=== PATIENT | male | born 1975 | race Caucasian/White ===

== ENCOUNTER 2024-12-23 12:33 | Inpatient (IN) ==
--- NOTE | 2024-12-23 12:43 | Emergency Department Note ---
Impression & Plan Dog bite of right hand, Nausea vomiting and diarrhea ED Provider Note CHIEF COMPLAINT: Dog bite HISTORY OF PRESENTING ILLNESS: Patient is a 49-year-old male who arrives to the emergency department for evaluation of concern for infection from dog bite occurred over the weekend. Patient received, IV Unasyn, and was discharged home on Augmentin. Patient states infection appears to be developing, and he is feeling not well. The patient states he has been unable to keep down his oral antibiotics from nausea and vomiting. He reports fevers, body aches, and abdominal pain. He reports he has also had some persistent diarrhea. He states the pain in his hand, has not worsened however the swelling has slightly increased as well as the redness. He is neurovascularly intact. REVIEW OF SYSTEMS: See HPI for pertinent positives and pertinent negatives. ALLERGIES: No known drug allergy MEDICATIONS: Augmentin PAST MEDICAL HISTORY: No pertinent past medical history PHYSICAL EXAM: VITALS: Vitals are noted on the nurse's note and reviewed by myself. Vital signs stable. GENERAL: 49-year-old male, in no acute distress, nondiaphoretic, well-developed well-nourished. SKIN: Erythema with edema and puncture wounds noted to the right hand. Cellulitis noted extending across the wrist joint onto the distal forearm. HEART: Regular rate and rhythm without murmurs gallops or rubs. LUNGS: Clear to auscultation bilaterally without wheezes, rales or rhonchi. No retractions or accessory muscle use. MUSCULOSKELETAL: Full ROM right wrist, director of women's services strength 4/5. Capillary refill <3. NEURO: Patient was alert and oriented to person place and time. No focal neurological deficits. DIFFERENTIAL DIAGNOSIS: Cellulitis, abscess, MRSA infection, DVT, necrotizing fasciitis, dermatitis, drug eruption, allergic reaction, as well as other pathologies. ED COURSE AND MEDICAL DECISION MAKING: HISTORY FROM INDEPENDENT HISTORIAN: Significant other at bedside as secondary historian. MEDICATIONS GIVEN: 1LNSS bolus, 3gm IV Unasyn MDM SUMMARY: The patient is a pleasant 49-year-old male who presents to the emergency department for the above stated complaint. A saline lock was established, CBC, CMP, lactate, procalcitonin, magnesium, phosphorus, upper respiratory BioFire panel, stool BioFire panel were obtained. CBC shows no leukocytosis, with a stable hemoglobin and hematocrit. CMP shows phosphorus just slightly low at 2.4, with no other concerning findings. Magnesium within normal limits, lactate 0.9 procalcitonin 1.51. Upper respiratory viral panel negative. Stool culture not obtained while patient was in the department. The patient was provided 1 L normal saline, as well as 3 g IV Unasyn. Due to the patient not being able to keep down food or fluids, IV admission is indicated as the patient did sustain a significant dog bite, with worsening infection and worsening cellulitis. Contact was made with case management to [facility] I spoke with Dr. Mason[facility], who agreed to accept the patient for admission. The patient will require IV fluids, and IV antibiotics. Please refer to their documentation for further patient workup and care. DIAGNOSIS: Dog bite infection The chart was completed utilizing [employer] Speech voice recognition software. Grammatical errors, random word insertions, pronoun errors, and incomplete sentences are an occasional consequence of this system due to software limitations, ambient noise, and hardware issues. Any formal questions or concerns about the content, text, or information contained within the body of this dictation should be directly addressed to the provider for clarification. Past Med/Surg History Problem List (Updated 12/23/24 @ 17:04 by YASMEEN Silva) Nausea vomiting and diarrhea (Acute) Dog bite of right hand (Acute) Social History Smoking Status: Never smoker Preferred Language: Nepali Feels Safe at Home: Yes Allergies Allergies Allergy/AdvReac Type Severity Reaction Status Date / Time No Known Allergies Allergy Verified 12/22/24 01:25 Home Meds Previous Rx's Medication Instructions Recorded amoxicillin 875 mg-potassium 1 tab PO BID 10 days #20 tabs 12/22/24 clavulanate 125 mg tablet Results & Data (ED) Vital Signs Vital Signs - 24 hr 12/23/24 12:41 12/23/24 15:00 12/23/24 16:23 Temperature 36.7 C Temperature Source Temporal Artery Scan Pulse Rate 125 H Pulse Rate [Right Finger] 113 H 108 H Pulse Rhythm Regular Pulse Rhythm [Right Finger] Regular Pulse Strength Normal Pulse Strength [Right Finger] Normal Respiratory Rate 20 16 18 Respiratory Effort / Characteristics Non-Labored Spontaneous Non-Labored Spontaneous Non-Labored Spontaneous Respiratory Depth Normal Normal Normal Respiratory Pattern Regular Regular Blood Pressure 128/77 Blood Pressure [Right Arm] 126/80 131/91 Blood Pressure Mean 94 Blood Pressure Mean [Right Arm] 95 104 Blood Pressure Position [Right Arm] Semi-fowlers Pulse Oximetry 95 93 95 Oxygen Delivery Method Room Air Room Air Room Air Sepsis Recent Fever Within 48 Hours No Sepsis New/Unexplained Change in Mental Status N/A Sepsis Action Taken by Nursing No Action Required Home Medications Current Medication List: was personally reviewed by me Laboratory Data Attestation: I reviewed the patient's lab results. 12/23/24 13:36 12/23/24 13:45 Lab Results 12/23/24 12/23/24 12/23/24 Range/Units 13:36 13:45 14:30 WBC 5.24 (4.8-10.8) K/ul RBC 5.18 (4.70-6.10) M/uL Hgb 15.5 (14.0-18.0) g/dl Hct 44.9 (42.0-52.0) % MCV 86.7 (80.0-100.0) fL MCH 29.9 (25.0-34.0) pg MCHC 34.5 (32.0-36.0) g/dL RDW Std Deviation 39.9 (36.4-46.3) fL RDW Coeff of Luz Elena 12.7 (11.5-14.5) % Plt Count 172 (130-400) K/uL MPV 11.0 (9.4-12.4) fL Immature Gran % (Auto) 0.2 % Neut % (Auto) 91.2 % Lymph % (Auto) 3.6 % Gregory % (Auto) 4.8 % Eos % (Auto) 0.0 % Baso % (Auto) 0.2 % Neut # (Auto) 4.78 (1.40-6.50) K/uL Lymph # (Auto) 0.19 L (1.20-3.40) K/uL Gregory # (Auto) 0.25 (0.11-0.59) K/uL Eos # (Auto) 0.00 (0.00-0.50) K/uL Baso # (Auto) 0.01 (0.00-0.20) K/uL Immature Gran # (Auto) 0.01 (0.01-0.20) K/uL RBC Morphology Unremarkable Sodium 137 (136-145) mmol/L Potassium 3.5 (3.5-5.1) mmol/L Chloride 105 (98-107) mmol/L Carbon Dioxide 28 (21-32) mmol/L Anion Gap 4 (3-11) BUN 21 (6-23) mg/dl Creatinine 1.00 (0.6-1.4) mg/dl Est Cr Clr Drug Dosing 92.3 ml/min eGFR 92.26 BUN/Creatinine Ratio 21.0 H (10-20) Glucose 158 H (70-99(Fasting)) mg/dl Lactate 0.9 (0.4-2.0) mmol/L Calcium 8.7 (8.6-10.3) mg/dl Phosphorus 2.4 L (2.5-4.9) mg/dl Magnesium 1.7 (1.7-2.4) mg/dl Total Bilirubin 0.8 (0.2-1.0) mg/dl AST 23 (13-39) U/L ALT 22 (7-52) U/L Alkaline Phosphatase 38 (34-104) U/L Total Protein 6.2 (6.0-8.3) gm/dl Albumin 4.1 (3.4-5.0) gm/dl Globulin 2.1 L (2.5-4.0) gm/dl Albumin/Globulin Ratio 2.0 (0.9-2) Procalcitonin 1.51 H (0-0.5) ng/ml Adenovirus (PCR) Not Detected (NotDetected) B. pertussis DNA (PCR) Not Detected (NotDetected) B.parapertussis DNA PCR Not Detected (NotDetected) C. pneumoniae DNA (PCR) Not Detected (NotDetected) Coronavirus OC43 (PCR) Not Detected (NotDetected) Coronavirus HKU1 (PCR) Not Detected (NotDetected) Coronavirus 229E (PCR) Not Detected (NotDetected) SARS-CoV-2 (PCR) Not Detected (NotDetected) Coronavirus NL63 (PCR) Not Detected (NotDetected) Human Metapneumovir PCR Not Detected (NotDetected) Influenza Type A (PCR) Not Detected (NotDetected) Influenza Type B (PCR) Not Detected (NotDetected) M. pneumoniae (PCR) Not Detected (NotDetected) Parainfluenza 1 (PCR) Not Detected (NotDetected) Parainfluenza 2 (PCR) Not Detected (NotDetected) Parainfluenza 3 (PCR) Not Detected (NotDetected) Parainfluenza 4 (PCR) Not Detected (NotDetected) RSV (PCR) Not Detected (NotDetected) Entero/Rhino (PCR) Not Detected (NotDetected) Administered Medications Discontinued Medications Sodium Chloride (Nss) 1,000 mls @ 999 mls/hr IV .Q1H1M ONE Stop: 12/23/24 14:36 Last Infusion: 12/23/24 15:12 Dose: Infused Documented By: Admin: 12/23/24 13:50 Dose: 999 mls/hr Documented By: BERNARD Ampicillin Sodium/Sulbactam Sodium (Unasyn) 3,000 mg in 100 mls @ 200 mls/hr IV NOW STA Stop: 12/23/24 15:20 Last Infusion: 12/23/24 15:56 Dose: Infused Documented By: Admin: 12/23/24 15:08 Dose: 200 mls/hr Documented By: BERNARD Discharge Plan Visit Data Chief Complaint: Animal Bite Stated Complaint: DOG BITE, SICK ED Provider: Narendra Garcia ED Midlevel Provider: Radha Higginbotham Discharge Problem: Dog bite of right hand, Nausea vomiting and diarrhea Forms Stand Alone Forms: [facility] Prescriptions Prescriptions: No Action amoxicillin-pot clavulanate 875-125 mg tablet 1 tab PO BID 10 Days Qty: 20 0RF Referrals Referrals: PCP,NO [Primary Care Provider] -
[2024-12-23] MEDS: SODIUM CHLORIDE 0.9% 1,000 ML IV ONE (13:50)
[2024-12-23 14:16] LABS: Hematocrit (blood only) 44.9 % (42.0-52.0); Hemoglobin 15.5 g/dl (14.0-18.0); Mean Corpuscular Hemoglobin 29.9 pg (25.0-34.0); Mean Corpuscular Hgb Conc 34.5 g/dL (32.0-36.0); Mean Corpuscular Volume 86.7 fL (80.0-100.0); Platelet Count 172 K/uL (130-400); RDW Coefficient of Variation 12.7 % (11.5-14.5); RDW Standard Deviation 39.9 fL (36.4-46.3); Red Blood Count 5.18 M/uL (4.70-6.10); White Blood Count 5.24 K/ul (4.8-10.8)
[2024-12-23 14:31] LABS: Albumin Level 4.1 gm/dl (3.4-5.0); Bilirubin,Total 0.8 mg/dl (0.2-1.0); Calcium 8.7 mg/dl (8.6-10.3); Creatinine Clr Calc Pharmacy 92.3 ml/min; Globulin 2.1 gm/dl (2.5-4.0); Magnesium 1.7 mg/dl (1.7-2.4); Phosphorus 2.4 mg/dl (2.5-4.9); Potassium 3.5 mmol/L (3.5-5.1); Total Protein 6.2 gm/dl (6.0-8.3)
[2024-12-23 14:36] LABS: Basophils # (auto) 0.01 K/uL (0.00-0.20); Basophils % (auto) 0.2 %; Immature Granulocytes # (auto) 0.01 K/uL (0.01-0.20); Immature Granulocytes % (auto) 0.2 %; Lymphocytes # (auto) 0.19 K/uL (1.20-3.40); Lymphocytes % (auto) 3.6 %; Monocytes # (auto) 0.25 K/uL (0.11-0.59); Monocytes % (auto) 4.8 %; Neutrophils # (auto) 4.78 K/uL (1.40-6.50); Neutrophils % (auto) 91.2 %; RBC Morphology Unremarkable
[2024-12-23 14:57] LABS: Adenovirus PCR Not Detected (NotDetected); Bordetella parapertussis PCR Not Detected (NotDetected); Bordetella pertussis PCR Not Detected (NotDetected); Chlamydia pneumoniae PCR Not Detected (NotDetected); Coronavirus 229E PCR Not Detected (NotDetected); Coronavirus CoV-2 (COVID19)PCR Not Detected (NotDetected); Coronavirus HKU1 PCR Not Detected (NotDetected); Coronavirus NL63 PCR Not Detected (NotDetected); Coronavirus OC43PCR Not Detected (NotDetected); Human Metapneumovirus PCR Not Detected (NotDetected); Influenza A PCR Not Detected (NotDetected); Influenza B PCR Not Detected (NotDetected); Mycoplasma pneumoniae PCR Not Detected (NotDetected); Parainfluenza Virus 1 PCR Not Detected (NotDetected); Parainfluenza Virus 2 PCR Not Detected (NotDetected); Parainfluenza Virus 3 PCR Not Detected (NotDetected); Parainfluenza Virus 4 PCR Not Detected (NotDetected); Respiratory Syncytial VirusPCR Not Detected (NotDetected); Rhinovirus/Enterovirus PCR Not Detected (NotDetected)
[2024-12-23] MEDS: AMPICILLIN/SULBACTAM SOD 3,000 MG/100 ML BAG IV STA (15:08)
--- NOTE | 2024-12-23 16:46 | History & Physical Report ---
Date of Service December 23, 2024 History of Present Illness Chief Complaint: Fevers, Recent Dog Bite Primary Care Provider: NO PCP Edenilson Eileeneliceo is a 49y/o M with PMHx significant for who presented to the ED for evaluation of Allergies Allergy/AdvReac Type Severity Reaction Status Date / Time No Known Allergies Allergy Verified 12/22/24 01:25 Home Medications Medication Instructions Recorded Confirmed Type amoxicillin 875 mg-potassium 1 tab PO BID 10 days #20 tabs 12/22/24 12/23/24 Rx clavulanate 125 mg tablet Past Med/Surg History Problem List Dog bite of right hand (Acute) Social History Smoking Status: Never smoker Preferred Language: Italian Feels Safe at Home: Yes Results & Data Results & Data Vital Signs (Past 12 Hours) Vital Signs Temp Pulse Pulse Resp BP BP Pulse Ox 12/23/24 16:23 108 H 18 131/91 95 12/23/24 15:00 113 H 16 126/80 93 12/23/24 12:41 36.7 C 125 H 20 128/77 95 O2 Del Method 12/23/24 16:23 Room Air 12/23/24 15:00 Room Air 12/23/24 12:41 Room Air
--- NOTE | 2024-12-23 17:57 | History & Physical Report ---
Date of Service December 23, 2024 Assessment & Plan (1) Dog bite of right hand: (2) Cellulitis of right hand: (3) Hyperglycemia, unspecified: (4) Hypophosphatemia: Plan Patient 49-year-old gentleman suffered a dog bite to his right hand, failed outpatient therapy due to intolerability of oral medications. Presents with evidence of worsening cellulitis. Patient high risk for further worsening, sepsis, abscess formation. Patient requires hospital level care for IV antibiotics and monitoring, possible specialty consultation. Admit to the MedSurg unit Continue IV Unasyn CT of the hand to evaluate for developing abscess. If there is any evidence of abscess, orthopedic/hand surgeon consultation for possible debridement Replace phosphorus Check fasting glucose in a.m. along with A1c History of Present Illness Chief Complaint: Dog bite with increasing redness and pain Primary Care Provider: NO PCP Patient 49-year-old gentleman who initially presented to the emergency department yesterday after being bit on the right hand by a dog. Patient had reported that he was playing with the dog and the dog accidentally bit his hand. It was a large husky mixed breed dog. All shots were up-to-date. Patient had x-rays of the hand done yesterday. There is no evidence of fracture or foreign body. The hand was copiously irrigated in the ED and Steri-Strips were placed. He was given a dose of Unasyn here in the ED and a prescription for Augmentin to be taken at home. He attempted to take the Augmentin at home. But he had not significant abdominal discomfort diarrhea and noticed that the hand was becoming more swollen and red and return to the ED. Laboratory evaluation here in the ED was remarkable for an elevated procalcitonin but normal WBCs. However due to the fact that the patient cannot tolerate his antibiotics and there appeared to be worsening of his swelling in his hand and redness was referred for hospital level care. Time my evaluation patient reported that the swelling had improved but noticed some red streaking up his arm. He denies any fever but did have some chills. No other joint pains or swelling. No chest pain or shortness of breath. No problems with his bladder. Is having some loose stools. Allergies Allergy/AdvReac Type Severity Reaction Status Date / Time No Known Allergies Allergy Verified 12/22/24 01:25 Home Medications Medication Instructions Recorded Confirmed Type amoxicillin 875 mg-potassium 1 tab PO BID 10 days #20 tabs 12/22/24 12/23/24 Rx clavulanate 125 mg tablet Past Med/Surg History Problem List (Updated 12/23/24 @ 17:54 by Will Mason DO) Hypophosphatemia Hyperglycemia, unspecified Cellulitis of right hand Nausea vomiting and diarrhea (Acute) Dog bite of right hand (Acute) Social History Smoking Status: Never smoker Preferred Language: Bengali Feels Safe at Home: Yes Review of Systems Review of Systems: Pertinent positive and negative review of systems as mentioned in the HPI Physical Exam Physical Exam: Constitutional: Alert, mildly ill in appearance, nontoxic HEENT: Mucous membranes moist. Sclera clear Neck: Soft, no adenopathy Lungs: Clear to auscultation, decreased, no wheezes rales or rhonchi CV: S1-S2, regular Abdomen: Soft, nontender, nondistended Extremities: No significant edema Musculoskeletal: Right hand with multiple puncture wounds on the thenar eminence, thumb and dorsal surface of the hand. Thenar eminence is quite swollen, red, warm, tender. There is some venous streaking up the lateral forearm Neuro: No focal deficits Psych: Cooperative, normal mood Results & Data Results & Data Vital Signs (Past 12 Hours) Vital Signs Temp Pulse Pulse Resp BP BP Pulse Ox 12/23/24 16:23 108 H 18 131/91 95 12/23/24 15:00 113 H 16 126/80 93 12/23/24 12:41 36.7 C 125 H 20 128/77 95 O2 Del Method 12/23/24 16:23 Room Air 12/23/24 15:00 Room Air 12/23/24 12:41 Room Air Diagnostic Findings Reviewed imaging, laboratory and diagnostic studies. Pertinent findings as below. CBC within normal range Potassium 3.5 Creatinine 1.0 Glucose 158 Lactate 0.9 Phosphorus 2.4 Procalcitonin 1.5 Respiratory viral panel negative Blood cultures pending Code Status & VTE Plan VTE Prophylaxis Plan VTE Prophylaxis will be ordered: Yes
--- NOTE | 2024-12-23 18:46 | CT Scan Report ---
CT extremity without contrast History: Swelling Comparison: None Technique: CT performed of the extremity without IV contrast. Dose reduction techniques were achieved by using automatic exposure control and/or adjustment of mA and/or kV according to patient size and/or use of iterative reconstruction technique. Findings: No fracture or dislocation. Joint spaces are normally aligned. There is generalized soft tissue swelling about the radial aspect of the hand and the base of the thumb. No focal collection, abscess or hematoma. No aggressive osseous lesion. Impression: Soft tissue swelling without bony abnormality or abscess, as questioned. Electronically signed by González Hilliard 12-23-2024 6:46 PM
[2024-12-23] MEDS ORDERED: ALUMINUM/MAGNESIUM SUSP 30 ML UDC PO PRN (20:37)
[2024-12-23] MEDS ORDERED: oxyCODONE HCL IR 5 MG TAB (IMMEDIATE RELEASE) PO PRN (20:37)
[2024-12-23] MEDS ORDERED: ONDANSETRON INJ 2 MG/ML 2 ML VIAL IV PRN (20:37)
[2024-12-23] MEDS: ACETAMINOPHEN 325 MG TAB PO PRN (21:03)
[2024-12-23] MEDS: AMPICILLIN/SULBACTAM SOD 3,000 MG/100 ML BAG IV SCH (21:18)
[2024-12-23] MEDS: POT PHOSPHATE MONOBASIC W/ SOD TAB PO SCH (21:21)
[2024-12-23] MEDS: LACTATED RINGER'S 1,000 ML IV SCH (22:16)
[2024-12-23] MEDS: IBUPROFEN 600 MG TAB PO PRN (22:16)
[2024-12-23 22:48] LABS: Adenovirus F 40/41 PCR Not Detected (NotDetected); Astrovirus PCR Not Detected (NotDetected); Campylobacter PCR Not Detected (NotDetected); Cryptosporidium PCR Not Detected (NotDetected); Cyclospora cayetanensis PCR Not Detected (NotDetected); Entamoeba histolytica PCR Not Detected (NotDetected); Enteroaggregative E.coli(EAEC) Not Detected (NotDetected); Enteropathogenic E.coli (EPEC) Not Detected (NotDetected); Enterotoxigenic E.coli (ETEC) Not Detected (NotDetected); Giardia lamblia PCR Not Detected (NotDetected); Plesiomonas shigelloides PCR Not Detected (NotDetected); Rotavirus A PCR Not Detected (NotDetected); Salmonella PCR Not Detected (NotDetected); Sapovirus PCR Not Detected (NotDetected); Shiga-like Toxin E.coli (STEC) Not Detected (NotDetected); Shigella/Enteroinvasive E.coli Not Detected (NotDetected); Vibrio cholerae PCR Not Detected (NotDetected); Vibrio species PCR Not Detected (NotDetected); Yersinia enterocolitica PCR Not Detected (NotDetected)
[2024-12-23 22:51] LABS: Norovirus GI/GII PCR DETECTED (NotDetected)
[2024-12-24 07:32] LABS: Hematocrit (blood only) 40.7 % (42.0-52.0); Hemoglobin 13.9 g/dl (14.0-18.0); Mean Corpuscular Hemoglobin 30.1 pg (25.0-34.0); Mean Corpuscular Hgb Conc 34.2 g/dL (32.0-36.0); Mean Corpuscular Volume 88.1 fL (80.0-100.0); Mean Platelet Volume 10.8 fL (9.4-12.4); Platelet Count 136 K/uL (130-400); RDW Coefficient of Variation 12.8 % (11.5-14.5); RDW Standard Deviation 41.1 fL (36.4-46.3); Red Blood Count 4.62 M/uL (4.70-6.10); White Blood Count 2.82 K/ul (4.8-10.8)
--- NOTE | 2024-12-24 07:35 | Hospitalist Progress Note ---
Date of Service December 24, 2024 Assessment & Plan (1) Dog bite of right hand: (2) Cellulitis of right hand: (3) Hyperglycemia, unspecified: (4) Hypophosphatemia: Plan Patient 49-year-old gentleman suffered a dog bite to his right hand, failed outpatient therapy due to intolerability of oral medications. Presents with evidence of worsening cellulitis. Patient high risk for further worsening, sepsis, abscess formation. Patient requires hospital level care for IV antibiotics and monitoring, possible specialty consultation. #R hand dog bite Admit to the MedSurg unit Continue IV Unasyn CT of the hand negative for abscess DOG is fully vaccinated for rabies add probiotic, significant improvement to erythema Likely can be discharged tomorrow on Augmentin, pt states he did not yet start the Augmentin he was previously prescribed due to N/V #Norovirus suspect pt pre hospital n/v/d 2/2 above vomiting has resolved, he is tolerating intake he is still having diarrhea imodium prn added #Hypokalemia #Hypophosphatemia K 3.3 today, will replace Phos replaced on admission #DVT ppx: encourage ambulation FULL CODE Dispo: continue IV antibiotics for 1 more day, likely d/c in a.m. Pt was seen and examined in collaboration with Dr. Estrada, please see addendum I spent a total of 46 minutes coordinating, documenting and providing care for this patient excluding time spent in the performance of separately billed services or time spent by another provider/QHP. Admission and Anticipated Discharge Date Admission Date: December 23, 2024 Supervising Physician Co-Signing Physician Notes Patient seen and examined independently. He reports that he feels much better and the swelling in the hands has significantly improved Reports diarrhea has slightly improved as well. Continue IV antibiotics Possible discharge later today or in a.m. I have reviewed the advanced practitioner's documentation, and I agree with, and take responsibility for the plan of care I spent a total of 20 minutes coordinating, documenting, and providing care for this patient excluding time spent in the performance of separately billed services. All of the aforementioned completed while collaborating with the assigned advanced practitioner for a full treatment plan Subjective Pt seen in 357-1. He feels his hand is less swollen/red today. He confirms the husky that bit him was vaccinated for rabies. He denies further vomiting but he does have several episodes of diarrhea. Denies f/c/s, chest pain, sob, n/v. Review of Systems Review of Systems: All systems reviewed & are unremarkable except as noted in HPI & below Physical Exam Physical Exam: Gen: WD/WN, NAD, A&O x3 HEENT: Normocephalic, atraumatic, conjunctivae moist, sclerae anicteric, mucous membranes moist. Lung: Clear to Auscultation bilaterally, no wheezes/rales/rhonchi Heart: Regular rate, regular rhythm, no murmurs, rubs, or gallops Abdomen: Soft, NT, ND +BS x 4 Extremities: + dog bite/puncture wounds to R thenar aspect of hand, steris in place, venous streaking has since resolved Skin: Warm, no rash, negative turgor. Results & Data Results & Data Vital Signs (Past 12 Hours) Vital Signs Temp Pulse Resp BP Pulse Ox O2 Del Method 12/23/24 21:28 37.8 C H 94 H 18 136/67 93 Room Air 12/23/24 20:59 37.8 C H 94 H 18 136/67 93 Room Air Laboratory Results I have independently reviewed and interpreted patient's cbc, bmp, a1c Short CBC 12/23/24 12/24/24 Range/Units 13:36 07:07 WBC 5.24 2.82 L (4.8-10.8) K/ul Hgb 15.5 13.9 L (14.0-18.0) g/dl Hct 44.9 40.7 L (42.0-52.0) % Plt Count 172 136 (130-400) K/uL BMP 12/23/24 12/24/24 13:45 07:07 Sodium 137 141 Potassium 3.5 3.3 L Chloride 105 108 H Carbon Dioxide 28 32 BUN 21 10 Creatinine 1.00 0.89 Glucose 158 H 111 H Calcium 8.7 7.8 L Liver Function 12/23/24 Range/Units 13:45 Total Bilirubin 0.8 (0.2-1.0) mg/dl AST 23 (13-39) U/L ALT 22 (7-52) U/L Alkaline Phosphatase 38 (34-104) U/L Albumin 4.1 (3.4-5.0) gm/dl Medications Administered Current Inpatient Medications Acetaminophen (Acetaminophen 325 Mg Tab) 650 mg PO Q4H PRN PRN Reason: pain/fever Stop: 01/22/25 20:36 Last Admin: 12/23/24 21:03 Dose: 650 mg Al Hydrox/Mg Hydrox/Simethicone (Aluminum/Magnesium Susp 30 Ml Udc) 30 ml PO Q6H PRN PRN Reason: Dyspepsia Stop: 01/22/25 20:36 Ampicillin Sodium/Sulbactam Sodium (Unasyn) 3,000 mg in 100 mls @ 200 mls/hr IV Q6H KALYAN Stop: 12/30/24 20:59 Last Infusion: 12/24/24 09:05 Dose: Infused Ibuprofen (Ibuprofen 600 Mg Tab) 600 mg PO Q6H PRN PRN Reason: Pain or Fever Stop: 01/22/25 20:36 Last Admin: 12/23/24 22:16 Dose: 600 mg Lactobacillus Acidophilus (Advanced Probiotic 625 Mg Capsule) 1,250 mg PO DAILY KALYAN Stop: 01/23/25 11:09 Loperamide HCl (Loperamide Hcl 2 Mg Cap) 2 mg PO Q4H PRN PRN Reason: frequent diarrhea Stop: 01/23/25 11:09 Ondansetron HCl (Ondansetron Inj 2 Mg/Ml 2 Ml Vial) 4 mg IV Q6H PRN PRN Reason: Nausea Stop: 01/22/25 20:36 Oxycodone HCl (Oxycodone Hcl Ir 5 Mg Tab (Immediate Release)) 5 mg PO Q4H PRN PRN Reason: Pain Stop: 01/06/25 20:36
[2024-12-24 07:39] LABS: BUN Creatinine Ratio 11.2 (10-20); Calcium 7.8 mg/dl (8.6-10.3); Creatinine Clr Calc Pharmacy 103.7 ml/min; Phosphorus 2.6 mg/dl (2.5-4.9); Potassium 3.3 mmol/L (3.5-5.1)
[2024-12-24] MEDS: POTASSIUM CHLORIDE CRTAB 20 MEQ TABCR PO STA (08:27)
[2024-12-24 09:10] LABS: Estimated Average Glucose 111 mg/dl; Hemoglobin A1C 5.5 % (4.5-5.6)
[2024-12-24] MEDS ORDERED: LOPERAMIDE HCL 2 MG CAP PO PRN (11:10)
[2024-12-24] MEDS: ADVANCED PROBIOTIC 625 MG CAPSULE PO SCH (12:37)
[2024-12-24 16:02] VITALS: RESP 18
[2024-12-25 07:24] VITALS: BP 118/69; PULSE 75; TEMP 97.9; O2SAT 96
[2024-12-25 07:24] LABS: Basophils # (auto) 0.01 K/uL (0.00-0.20); Basophils % (auto) 0.4 %; Eosinophils # (auto) 0.04 K/uL (0.00-0.50); Eosinophils % (auto) 1.6 %; Hematocrit (blood only) 41.7 % (42.0-52.0); Hemoglobin 13.9 g/dl (14.0-18.0); Immature Granulocytes # (auto) 0.01 K/uL (0.01-0.20); Immature Granulocytes % (auto) 0.4 %; Lymphocytes # (auto) 1.02 K/uL (1.20-3.40); Lymphocytes % (auto) 40.2 %; Mean Corpuscular Hemoglobin 29.9 pg (25.0-34.0); Mean Corpuscular Hgb Conc 33.3 g/dL (32.0-36.0); Mean Corpuscular Volume 89.7 fL (80.0-100.0); Mean Platelet Volume 11.1 fL (9.4-12.4); Monocytes % (auto) 15.7 %; Neutrophils # (auto) 1.06 K/uL (1.40-6.50); Neutrophils % (auto) 41.7 %; Platelet Count 164 K/uL (130-400); RDW Coefficient of Variation 12.4 % (11.5-14.5); RDW Standard Deviation 40.7 fL (36.4-46.3); Red Blood Count 4.65 M/uL (4.70-6.10); White Blood Count 2.54 K/ul (4.8-10.8)
[2024-12-25 08:05] LABS: BUN Creatinine Ratio 9.3 (10-20); Calcium 8.8 mg/dl (8.6-10.3); Creatinine Clr Calc Pharmacy 107.3 ml/min; Potassium 4.1 mmol/L (3.5-5.1)
--- NOTE | 2024-12-25 10:45 | Discharge Summary ---
Discharge Summary Date of Service December 25, 2024 Principal Dx & Hospital Course #1 = Principal Diagnosis (1) Dog bite of right hand: (2) Cellulitis of right hand: (3) Hyperglycemia, unspecified: (4) Hypophosphatemia: Plan Patient 49-year-old gentleman suffered a dog bite to his right hand, failed outpatient therapy due to intolerability of oral medications. Presents with evidence of worsening cellulitis. Patient high risk for further worsening, sepsis, abscess formation. Patient requires hospital level care for IV antibiotics and monitoring, possible specialty consultation. 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 Ayala, please see addendum I spent a total of 40 minutes coordinating, documenting and providing care for this patient excluding time spent in the performance of separately billed services or time spent by another provider/QHP. Notes For Next Care Provider Medication Changes From Visit Please complete the course of Augmentin that was initially prescribed to you to complete treatment for cellulitis and dog bite. The next dose of your antibiotic is this evening. It is recommended that you take a daily probiotic while on antibiotic therapy. Admission HPI Per Admitting Provider Patient 49-year-old gentleman who initially presented to the emergency departmen t yesterday after being bit on the right hand by a dog. Patient had reported that he was playing with the dog and the dog accidentally bit his hand. It was a large husky mixed breed dog. All shots were up-to-date. Patient had x-rays of the hand done yesterday. There is no evidence of fracture or foreign body. The hand was copiously irrigated in the ED and Steri-Strips were placed. He was given a dose of Unasyn here in the ED and a prescription for Augmentin to be taken at home. He attempted to take the Augmentin at home. But he had not significant abdominal discomfort diarrhea and noticed that the hand was becoming more swollen and red and return to the ED. Laboratory evaluation here in the ED was remarkable for an elevated procalcitonin but normal WBCs. However due to the fact that the patient cannot tolerate his antibiotics and there appeared to be worsening of his swelling in his hand and redness was referred for hospital level care. Time my evaluation patient reported that the swelling had improved but noticed some red streaking up his arm. He denies any fever but did have some chills. No other joint pains or swelling. No chest pain or shortness of breath. No problems with his bladder. Is having some loose stools. Admission Exam Per Admitting Provider Constitutional: Alert, mildly ill in appearance, nontoxic HEENT: Mucous membranes moist. Sclera clear Neck: Soft, no adenopathy Lungs: Clear to auscultation, decreased, no wheezes rales or rhonchi CV: S1-S2, regular Abdomen: Soft, nontender, nondistended Extremities: No significant edema Musculoskeletal: Right hand with multiple puncture wounds on the thenar eminence, thumb and dorsal surface of the hand. Thenar eminence is quite swollen, red, warm, tender. There is some venous streaking up the lateral forearm Neuro: No focal deficits Psych: Cooperative, normal mood Discharge Exam Gen: WD/WN, NAD, A&O x3 HEENT: Normocephalic, atraumatic, conjunctivae moist, sclerae anicteric, mucous membranes moist. Lung: Clear to Auscultation bilaterally, no wheezes/rales/rhonchi Heart: Regular rate, regular rhythm, no murmurs, rubs, or gallops Abdomen: Soft, NT, ND +BS x 4 Extremities: + dog bite/puncture wounds to R thenar aspect of hand, steris in place, no redness Skin: Warm, no rash, negative turgor. Updated Medication List Medication Instructions Recorded Confirmed Type amoxicillin 875 mg-potassium 1 tab PO BID 10 days #20 tabs 12/22/24 12/23/24 Rx clavulanate 125 mg tablet Hospital Stay Data Consultations 12/23/24 16:50 ED Decision to Admit Stat Diagnostic Imagining Performed Hand CT 12/23/24 17:39 CT extremity without contrast History: Swelling Comparison: None Technique: CT performed of the extremity without IV contrast. Dose reduction techniques were achieved by using automatic exposure control and/or adjustment of mA and/or kV according to patient size and/or use of iterative reconstruction technique. Findings: No fracture or dislocation. Joint spaces are normally aligned. There is generalized soft tissue swelling about the radial aspect of the hand and the base of the thumb. No focal collection, abscess or hematoma. No aggressive osseous lesion. Impression: Soft tissue swelling without bony abnormality or abscess, as questioned. Electronically signed by González Hilliard 12-23-2024 6:46 PM Pending Results Patient Have Any Pending Studies at Discharge: No Discharge Instructions Given to Patient (Per Discharging Provider) MEDICATION CHANGES: Please complete the course of Augmentin that was initially prescribed to you to complete treatment for cellulitis and dog bite. The next dose of your antibiotic is this evening. It is recommended that you take a daily probiotic while on antibiotic therapy. SUMMARY OF TEST RESULTS: Edenilson you were admitted to the hospital after you sustained a dog bite to your Right hand. Unfortunately you were prescribed antibiotics, but you were unable to take them as you also came down with norovirus. Norovirus is a highly contagious GI illness that causes nausea vomiting and diarrhea and typically resolves after 72 hrs on its own. While hospitalized you received IV antibiotics and you are now tolerating a regular diet. You will be discharged home to complete the antibiotic that was already prescribed to you. You informed us that you are up to date on your tetanus vaccine. You also informed us that the dog that bit you was vaccinated for rabies. Please have the dog rectifier operator monitor the dog for 10 days to ensure no change in behavior. PENDING TEST RESULTS: None RECOMMENDATIONS FOR FOLLOW-UP: [place] follow up with your Primary Care Provider in 7 days to have your dog bite re evaluated. If you noticed the wound becomes more red, swollen or you develop fever please return to ED immediately. Please take antibiotics in its entirety. OTHER INSTRUCTIONS: Seek medical attention if you have: * temperature above 101 * chest pain or trouble breathing * abdominal pain, nausea, vomiting * diarrhea, dark stools or bloody stools * any unanswered questions or concerns Call 911 if symptoms are severe. Please take good care of yourself. It has been a pleasure taking care of you. Please take care of yourself. If you have any questions regarding your recent hospitalization please contact [facility] and request Farzad Cordero @ [phone]. Total Time Total Time Spent Total Time Spent (In Minutes): 40 minutes Supervising Physician Co-Signing Physician Notes Patient is seen and examined at bedside on day of discharge. Right hand swelling, pain, erythema much improved. Nausea, vomiting, diarrhea resolved. he offers no new complaints. Physical Exam: Vitals signs as noted above General Appearance:Moderately built and nourished, no apparent distress Head: normocephalic, Atraumatic Eyes: normal inspection, EOMI Neck: supple, Trachea midline Respiratory/Chest: Normal breath sounds, CTA, No accessory muscle use Cardiovascular: S1, S2, No murmur Abdomen/GI:Soft, Non tender, Bowel sounds present Extremities/Musculoskeletal:normal inspection, no edema, R hand puncture wounds noted, no erythema Neurologic/Psych:AAOX3, grossly no focal neurological deficits Skin: normal color, warm Right hand cellulitis Secondary to dog bite Norovirus infection--nausea, vomiting, diarrhea resolved Blood cultures negative to date Plan to change IV Unasyn to Augmentin on discharge Clinically improved Advised to follow-up with PCP in 1 week I personally interviewed and examined the patient at bedside. I have reviewed the advanced practitioner's documentation on the date of service referred in note and agree with plan. Patient's care is coordinated with Leah Benedict PA-C. Please refer to the documentation above for details of patient's presentation and for discussion of other issues. I spent a total [id number] coordinating, documenting, and providing care for this patient excluding time spent in the performance of separately billed services or time spent by another provider/QHP.
== END 2024-12-25 10:34 | disposition home or self-care (01) | DRG 603 ==
LOC: ED 12:33 → SUATTDRO 17:47 → 3W 17:47